=== PATIENT | female | born 2005 | race Caucasian/White ===

== ENCOUNTER 2023-05-02 17:10 | Emergency (ER) | payer OTHER ==
--- OUTSIDE RECORDS SUMMARY | 2023-05-02 17:12 | XMS REPORT | Continuity of Care Document ---
:2005 Author Organization [facility] t Address [address] [facility] [place] [address] Care Team Providers Name Role Phone EMMA SRINIVASAN Scooter Primary Care Physician Unavailable GC_SMFM_Preuss_C Attending Clinician Unavailable MARY SÁNCHEZ Attending Clinician Unavailable Mary Owen Attending Clinician GC_SMFM_Preuss_C Admitting Clinician Unavailable MARY SÁNCHEZ Admitting Clinician Unavailable Payers Payer Name Policy Type Policy Number Effective Date Expiration Date S ource [employer] - OPEN [id number] ACCESS - NATIONAL (POS) [place] CHILDREN [id number] 2014 HEALTH 00:00:00 Problems Condition Condition Condition Status Onset Resolution Last Treating Co mments Source Name Details Category Date Date Treatment Clinician Date No known No known Disease Unive rs active active ity of problems problems [facility] Allergies, Adverse Reactions, Alerts Allergy Allergy Status Severity Reaction(s) Onset Inactive Treating Comm ents Source Name Type Date Date Clinician Erythrom Propensi Active Nausea Univer s ycin ty to and/or -17 ity of adverse Vomiting 00:00: [place] reaction 00 Medical s Branch ERYTHROM DRUG Active N/V Univers YCIN 4-17 ity of 00:00: [address] Branch Azithrom Propensi Active Nausea 2014-09 Univer s ycin ty to and/or 0-02 ity of adverse Vomiting 00:00: [place] reaction 00 Medical s Branch AZITHROM DRUG Active High N/V 2014-09 Univers YCIN INGREDI 0-02 ity of 00:00: [place] 00 Medical Branch Azithrom Allergy Active [facility] ycin to Medical substanc e Social History Social Habit Start Date Stop Date Quantity Comments Source Exposure to Not sure [facility] SARS-CoV-2 [facility] (event) Branch Alcohol intake 2021-11-28 2021-11-28 Current [facility] 00:00:00 00:00:00 non-drinker of [facility] alcohol Truman (finding) Tobacco use and 2018-05-02 2018-05-02 Never used Universit y of exposure 00:00:00 00:00:00 [facility] Sex Assigned At [birth year] Universit y of 00:00:00 00:00:00 [facility] Smoking Status Start Date Stop Date Source Never Smoker [facility] Medications Ordered Filled Start Stop Current Ordering Indication Dosage Frequency Signature Comments Components Source Medication Medication Date Date Medication? Clinician (SIG) Name Name proMETHazin 2021- No 12.5mg 12.5 mg, Univers e 11-28 IV ity of (PHENERGAN) 08:45: 07:56 [place], [place] 12.5 mg in 00 :00 ONCE, 1 Medica l NaCl 0.9% dose, On Branch (NS) 50 mL Erica IV 11/28/21 at piggyback 0345, WANDA iopamidol 2021- No [id number] 100mL 100 mL, Univers (ISOVUE 11-28 Intravenou ity o f 370-500 mL) 08:15: 07:08 s, ONCE, 1 [place] injection 00 :00 dose, On Medica l 100 mL Erica Branch 11/28/21 at 0315, Routine ketorolac 2021- No 15mg 15 mg, Unive rs (TORADOL) 11-28 Slow IV ity of injection 07:15: 06:09 Push, [place] 15 mg 00 :00 ONCE, 1 Medical dose, On Branch Erica 11/28/21 at 0215, WANDA ondansetron 2021- No 8mg 8 mg, Slow Univers (ZOFRAN 11-28 IV Push, ity of (PF)) 07:15: 06:09 ONCE, 1 [place] injection 8 00 :00 dose, On Medi milena mg Erica Branch 11/28/21 at 0215, WANDA NaCl 0.9% 2021- No 1000mL at 999 Uni vers (NS) bolus 11-28 mL/hr, ity of infusion 07:00: 07:00 1,000 mL, Ryan as 1,000 mL 00 :00 IV Medical Infusion, Branch ONCE, 1 dose, On Erica 11/28/21 at 0200, WANDA dicyclomine 2021- No 20mg 20 mg, Uni vers (BENTYL) 11-28 Intramuscu ity of injection 06:54: 06:57 lar, ONCE, [place] 20 mg 00 :00 1 dose, On Medical Erica Branch 11/28/21 at 0200, Routine ondansetron Yes [id number] 4mg Take 1 Univers 4 mg 3-17 tablet by ity of disintegrat 00:00: mouth [place] ing tablet 00 every 8 Medica l (eight) Branch hours as needed for Nausea and Vomiting (N/V). proMETHazin Yes [id number] 25mg Take 1 Univers e 25 mg 3-17 tablet by ity of tablet 00:00: mouth [place] 00 every 6 Medical (six) Branch hours as needed for Nausea and Vomiting (N/V). dicyclomine Yes [id number] 20mg Take 1 Univers 20 mg 3-17 tablet by ity of tablet 00:00: mouth 4 [place] 00 (four) Medical times Branch daily as needed for Abdominal pain. ALBUTEROL 2018-09 Yes Inhale. Unive rs INHALE 0-29 ity of 21:24: [place] 50 Medical Branch AVIANE 2018-09 Yes Univers 0.1-20 0-23 ity of mg-mcg per 00:00: [place] tablet 00 Medical Branch albuterol albuterol No 2puff(s Q4H albuterol [facility] sulfate HFA sulfate HFA ) sulfate Medical 90 90 HFA 90 mcg/actuati mcg/actuati mcg/actuat on aerosol on aerosol ion inhaler inhaler aerosol Inhale 2 Inhale 2 inhaler puffs every puffs every Inhale 2 4 hours by 4 hours by puffs inhalation inhalation every 4 route as route as hours by needed. needed. inhalation route as needed. Tamiflu 75 Tamiflu 75 No 1capsul BID Tamiflu 75 [facility] mg capsule mg capsule e(s) mg capsule Medical Take 1 Take 1 Take 1 capsule capsule capsule twice a day twice a day twice a by oral by oral day by route for 5 route for 5 oral route days. days. for 5 days. Vital Signs Vital Name Observation Time Observation Value Comments Source BP Diastolic 2022-07-16 00:00:00 74 mm[Hg] Jarrod [facility] Height 2022-07-16 00:00:00 61 [in_i] [facility] BMI (Body Mass 2022-07-16 00:00:00 21.4 kg/m2 [facility] Index) BP Systolic 2022-07-16 00:00:00 122 mm[Hg] Jarrod [facility] Body Weight 2022-07-16 00:00:00 1811 [oz_av] [facility] Systolic blood 2021-11-28 08:00:00 103 mm[Hg] Univer sity of pressure [facility] Diastolic blood 2021-11-28 08:00:00 70 mm[Hg] Unive rsity of pressure [facility] Heart rate 2021-11-28 08:00:00 69 /min [facility] Respiratory rate 2021-11-28 08:00:00 17 /min [facility] Oxygen saturation in 2021-11-28 08:00:00 99 /min [facility] Arterial blood by [facility] Pulse oximetry Branch Body temperature 2021-11-28 05:40:[address] [facility] height 2021-11-28 05:40:00 152.4 cm [facility] Body weight 2021-11-28 05:40:00 49.896 kg [facility] BMI 2021-11-28 05:40:00 21.48 kg/m2 [facility] Body mass index 2021-11-28 05:40:00 49.59 % Unive rsity of (BMI) [Percentile] [place] [facility] ical Per age and sex Branch Procedures Procedure Date / Time Performed Performing Clinician Sourc e POTASSIUM SERUM 2021-11-28 07:27:00 Mary Sánchez [facility] CT ABDOMEN PELVIS W 2021-11-28 07:11:42 Mary Sánchez [facility] CONTRAST [facility] POCT TEST 2021-11-28 06:51:00 Mary Sánchez [facility] URINALYSIS 2021-11-28 06:46:00 [facility]UEN[facility] A/B 2021-11-28 06:08:00 Mary Sánchez [facility] COVID-19 (ID NOW RAPID 2021-11-28 06:08:00 [facility] Branch LIPASE 2021-11-28 05:59:00 [facility] COMP. METABOLIC PANEL 2021-11-28 05:59:00 Mary Sánchez [facility] ([id number]) [facility] CBC WITH DIFF 2021-11-28 05:59:00 [facility] NOTICE OF PRIVACY 2021-11-28 05:35:16 Doctor Unassigned, No [facility] PRACTICES Name [facility] CONSENT/REFUSAL FOR 2021-11-28 05:34:49 Doctor Unassigned, No [facility] DIAGNOSIS AND Name [facility] TREATMENT Plan of Care Planned Activity Planned Date Details Comments Source Diagnostic Test 2022-07-16 SARS CoV 2 RdRp gene, Claudia via Medical Pending 00:00:00 QL probe, respiratory specimen [code = SARS CoV 2 RdRp gene, QL probe, respiratory specimen] Encounters Start End Encounter Admission Attending Care Care Encounter Source Date/Time Date/Time Type Type Clinicians Facility Department ID 2022-07-21 2022-07-21 Outpatient GC_SMFM_Pre PRIV PRIV [id number] [facility] 00:00:00 00:00:00 uss_C [id number] Medica l 2022-07-17 2022-07-17 Outpatient GC_SMFM_Pre PRIV PRIV [id number] [facility] 00:00:00 00:00:00 uss_C [id number] Medica l 2022-07-16 2022-07-16 Outpatient GC_SMFM_Pre PRIV PRIV [id number] [facility] 00:00:00 00:00:00 uss_C [id number] Medica l 2022-07-16 2022-07-16 [facility] [id number] [facility] 00:00:00 00:00:00 [facility] - Medic al TEAM MEMBER: 110 GC_SMFM_Fas Melonie ford [facility], [address], [place] [address] , Ph. 2021-11-28 2021-11-28 Emergency X SÁNCHEZ, RUST ERT [id number] Univers 00:56:00 03:21:00 MARY wilkins [facility] 2021-11-28 2021-11-28 Emergency Sánchez, RUST [id number] Univers 00:56:00 03:21:00 Mary HEBERT [id number] i ty [facility] [id number] [facility] [id number] [address] Results Test Description Test Time Test Comments Results Result Comments Source POTASSIUM SERUM 2021-11-28 07:52:46 Test Item Value Reference Range Interpretation Comme nts K (test code = 7219991979) 4.6 mmol/L 3.5-5.0 Lab Interpretation (test code = 51931-9) Normal [place] [facility] [id number] 06:51:00 Test Item Value Reference Range Interpretation Comments POCT PREG (test code = 1605) negative On board controls acceptable with present C Line (test code = 3574) POCT PREG LOT # (test code = 3575) [id number] POCT PREG TEST DATE (test 2022-11-11 code = 3576) Lab Interpretation (test code = Normal 87015-1) [facility]. METABOLIC PANEL ([id number])2021-11-28 06:26:38 Test Item Value Reference Range Interpretation Comments NA (test code = 136 mmol/L 135-145 2091752011) K (test code = 5.7 mmol/L 3.5-5.0 H 5651409951) CL (test code = 102 mmol/L 98-108 3240090797) CO2 TOTAL (test code = 24 mmol/L 23-31 4961241173) AGAP (test code = 2-16 0629631326) BUN (test code = 17 mg/dL 7-23 1589915454) GLUCOSE (test code = 120 mg/dL 70-110 H 5768714624) CREATININE (test code = 0.73 mg/dL 0.50-1.04 3889701243) TOTAL BILI (test code = 1.9 mg/dL 0.1-1.1 H 5095851670) CALCIUM (test code = 9.2 mg/dL 8.6-10.6 7838864636) T PROTEIN (test code = 8.0 g/dL 6.3-8.2 4743096317) ALBUMIN (test code = 5.1 g/dL 3.5-5.0 H 4554564988) ALK PHOS (test code = 56 U/L 34-122 1639674374) ALTv (test code = 21 U/L 5-35 1742-6) AST(SGOT) (test code = 43 U/L 13-40 H 2997642559) eGFR (test code = mL/min/1.73m2 1293937344) SULLY (test code = SULLY) Association of Glomerular Filtration Rate (GFR) and Staging of Kidney Disease* + --+ --+ ------+| GFR (mL/min/1.73 m2) ?| With Kidney Damage ?| ?Without Kidney Damage+ --------+ --------+ +| ?>90 ?| ?Stage one ?| ? Normal ?+ ---+ ---+ -------+| ?60-89 ?| ?Stage two ?| ? Decreased GFR ? + --+ --+ ------+| ?30-59 ?| ?Stage three ?| ? Stage three ? + --+ --+ ------+| ?15-29 ?| ?Stage four ? | ? Stage four ?+ ---+ ---+ -------+| ?<15 (or dialysis) ? ?| ?Stage five ? | ? Stage five ?+ ---+ ---+ -------+ *Each stage assumes the associated GFR level has been in effect for at least three months. ?Stages 1 to 5, with or without kidney disease, indicate chronic kidney disease. Notes: Determination of stages one and two (with eGFR >59mL/min/1.73 m2) requires estimation of kidney damage for at least three months as defined by structural or functional abnormalities of the kidney, manifested by either:Pathological abnormalities or Markers of kidney damage (including abnormalities in the composition of the blood or urine or abnormalities in imaging tests). Lab Interpretation Abnormal (test code = 17078-3) [place] [facility] 06:26:18 Test Item Value Reference Range Interpretation Comments LIPASE (test code = 3044482703) 80 U/L 0-220 Lab Interpretation (test code = Normal 97275-2) [place] [facility] WITH [id number] 06:10:54 Test Item Value Reference Range Interpretation Comments WBC (test code = See_Comment H [Automated 4890-2) message] The system which generated this result transmit zachariah reference range : 4.50 - 13.50 10*3/?L. The reference range was not used to interpret this result as normal/abnormal . RBC (test code = See_Comment H [Automated 789-8) message] The system which generated this result transmit zachariah reference range : 4.10 - 5.10 10*6/?L. The reference range was not used to interpret this result as normal/abnormal . HGB (test code = 16.1 g/dL 12.0-16.0 H 718-7) HCT (test code = 47.4 % 36.0-45.0 H 4544-3) MCV (test code = 86.2 fL 78.0-95.0 787-2) MCH (test code = 29.3 pg 26.0-32.0 785-6) MCHC (test code = 34.0 g/dL 32.0-36.0 786-4) RDW-SD (test code = 37.4 fL 38.5-49.0 L 81011-0) RDW-CV (test code = 11.8 % 11.5-14.0 788-0) PLT (test code = See_Comment [Automated 777-3) message] The system which generated this result transmit zachariah reference range : 135 - 361 10*3/ ?L. The reference range was not u sed to interpret th is result as normal/abnormal . MPV (test code = 9.7 fL 9.4-13.3 06628-0) NRBC/100 WBC (test See_Comment [Automat ed code = 2093336374) message] The system which generated this result transmit zachariah reference range : 0.0 - 10.0 /100 WBCs. The reference range was not used to interpret this result as normal/abnormal . NRBC x10^3 (test code <0.01 See_Comment [Auto mated = 9010766326) message] The system which generated this result transmit zachariah reference range : 10*3/?L. The reference range was not used to interpret this result as normal/abnormal . GRAN MAT (NEUT) % 89.1 % (test code = 770-8) IMM GRAN % (test code 0.40 % = 7307418509) LYMPH % (test code = 5.2 % 736-9) MONO % (test code = 5.0 % 5905-5) EOS % (test code = 0.1 % 713-8) BASO % (test code = 0.2 % 706-2) GRAN MAT x10^3(ANC) 12.89 10*3/uL 1.50-10.30 H (test code = 8596978934) IMM GRAN x10^3 (test 0.06 10*3/uL 0.00-0.06 code = 4687375454) LYMPH x10^3 (test code 0.75 10*3/uL 0.70-7.40 = 731-0) MONO x10^3 (test code 0.72 10*3/uL 0.00-0.50 H = 742-7) EOS x10^3 (test code = <0.03 0.00-0.40 711-2) BASO x10^3 (test code 0.03 10*3/uL 0.00-0.10 = 704-7) Lab Interpretation Abnormal (test code = 61379-4) [facility]"
[2023-05-02] MEDS ORDERED: ACETAMINOPHEN 500 MG TAB ONE (18:13)
[2023-05-02] MEDS ORDERED: NA CHLORIDE 0.9% 1,000 ML ONE (18:13)
[2023-05-02] MEDS ORDERED: FAMOTIDINE 20 MG/2 ML VIAL IV ONE (18:13)
[2023-05-02] MEDS ORDERED: ONDANSETRON 4 MG/2 ML VIAL ONE (18:13)
[2023-05-02] MEDS ORDERED: KETOROLAC 30 MG/ML INJ ONE (18:13)
[2023-05-02 18:23] LABS: Specific Gravity 1.017 (1.005-1.030); Urine Bacteria <20 /HPF (<20); Urine Bilirubin NEGATIVE (Negative); Urine Blood Negative (Negative); Urine Clarity Turbid (Clear); Urine Color Light-Yellow (Yellow); Urine Glucose NEGATIVE (Negative); Urine Mucus Slight /HPF (None Seen); Urine Protein TRACE (Negative); Urine RBC <5 /HPF (None Seen); Urine Urobilinogen Normal (Normal); Urine pH 6.5 (5.0-7.0)
[2023-05-02 18:25] LABS: Absolute Lymphocytes (CBC) 1.1 K/uL (0.7-4.9); Hematocrit 41.1 % (36.0-45.0); Lymphocytes % 15.4 % (15.3-44.8); MCV 87.2 fL (80-100); MPV 7.9 fL (7.6-11.3); Platelets 150 thou/uL (152-406); RBC Red Blood Cell Count 4.71 M/uL (3.86-4.86); Specific Gravity 1.017 (1.005-1.030)
[2023-05-02 18:38] LABS: Albumin 3.3 g/dL (3.4-5.0); Bilirubin Total 1.4 mg/dL (0.2-1.0); Potassium 3.8 mEq/L (3.5-5.1); Protein, Total 6.8 g/dL (6.4-8.2)
--- NOTE | 2023-05-02 19:41 | RAD REPORT ---
EXAM DESCRIPTION: CT - Abdomen Pelvis W Contrast - 05/02/2023 6:47 pm CLINICAL HISTORY: lower abd pain, +fever, dont wait Cr COMPARISON: No comparisons TECHNIQUE: Thin cut axial CT imaging of the abdomen and pelvis was performed following intravenous a dministration of 90 mL Isovue 300. Multiplanar reformats were generated and reviewed. All CT scans are performed using dose optimization technique as appropriate and may include automated exposure control or mA/KV adjustment according to patient size. FINDINGS: No suspicious findings in the lung bases. The liver, spleen, and pancreas show no suspicious findings. Gallbladder and biliary tree are also wi thout suspicious finding. Symmetric renal function is seen with no hydronephrosis or suspicious renal mass. No dilated bowel loops. Segmental wall thickening, mucosal hyperenhancement, and adjacent fat strandi ng involving the ascending colon. Mild free fluid layering in the pelvis. No free air, or fluid colle ctions. No hernia, mass or bulky lymphadenopathy. The urinary bladder is without significant finding. No suspicious bony findings. IMPRESSION: Findings most suggestive of segmental acute colitis involving the descending colon as ab ove. Mild free ascites layering in the pelvis. The findings were communicated to Mal Page on 05/02/2023 at 19: 29 hours.
[2023-05-02] MEDS ORDERED: MORPHINE 2 MG/ML SYR ONE (19:51)
--- NOTE | 2023-05-02 20:03 | ER ---
Nurse's Notes [facility] Name: Rubia Hilliard Age: 18 yrs Sex: Female : 2005 Arrival Date: 05/02/2023 Time: 17:10 Bed 3 Private MD: Diagnosis: Colitis;Lower abdominal pain;Acute febrile illness Presentation: 05/02 17:28 Chief complaint: Patient states: Fever, nausea, vomiting and diarrhea since Thursday. nj1 Seen at [facility] yesterday, sent home with rx's for pain/nausea which are not helping. Called today to [facility] and advised to come to ED for admission. Coronavirus screen: Vaccine status: Patient reports being unvaccinated. Ebola Screen: Patient denies travel to an Ebola-affected area in the 21 days before illness onset. Initial Sepsis Screen: Does the patient meet any 2 criteria? Temp <36.0*C (96.8*F)) or > 38.3*C (100.9*F). HR > 90 bpm. No. Patient's initial sepsis screen is negative. Does the patient have a suspected source of infection? Yes: Other: To be determined. Risk Assessment: Do you want to hurt yourself or someone else? Patient reports no desire to harm self or others. Onset of symptoms was April 29, 2023. 17:28 Method Of Arrival: Wheelchair [facility] 17:28 Acuity: CARMINE 3 [facility] Triage Assessment: 17:44 General: Appears. 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 - Social history:: Smoking status: Patient denies any tobacco usage or history of. Screenin:[address] [facility] ED Fall Risk Assessment (Adult) History of falling in the last 3 months, ap3 including since admission No falls in past 3 months (0 pts). Abuse screen: Denies threats or abuse. Nutritional screening: No deficits noted. Tuberculosis screening: No symptoms or risk factors identified. Assessment: 17:44 General: Appears uncomfortable, ill, Behavior is cooperative, appropriate for age, ap3 crying. Pain: Complains of pain in suprapubic area, right lower quadrant and left lower quadrant Pain currently is 7 out of 10 on a pain scale. Neuro: Level of Consciousness is awake, alert, obeys commands, Oriented to person, place, time, situation. Cardiovascular: Patient's skin is warm and dry. Respiratory: Airway is patent Respiratory effort is even, unlabored, Respiratory pattern is regular, symmetrical. GI: Abdomen is flat, Abd is soft X 4 quads Abdomen is tender to palpation in suprapubic area, right lower quadrant and left lower quadrant Reports lower abdominal pain, diarrhea, nausea. 19:29 General: pt complains of pain to lower abdomen that has started to radiate to upper jw7 abdomen. Provider notified. 20:43 GI:. jw7 Vital Signs: 17:28 BP 118 / 70; Pulse 94; Resp 18; Temp 101; Pulse Ox 99% on R/A; Weight 52.16 kg; Height nj1 5 ft. 0 in. ; Pain 4/10; 19:30 BP 108 / 70; Pulse 80; Resp 18 S; Temp 100.2(O); Pulse Ox 99% on R/A; jw7 17:28 Body Mass Index 22.46 (52.16 kg, 152.4 cm) nj1 17:28 Pain Scale: Adult nj1 ED Course: 17:13 Patient arrived in ED. im 17:31 Kan Tavarez MD is Attending Physician. jr11 17:33 Triage completed. nj1 17:33 Arm band placed on left wrist. nj1 17:38 Patient has correct armband on for positive identification. Bed in low position. Call ap3 light in reach. Side rails up X 1. Pulse ox on. NIBP on. 17:45 ED physician to see patient. ap3 17:58 Inserted saline lock: 20 gauge in right antecubital area, using aseptic technique. ap3 Blood collected. 18:12 Mignon Peralta, GEE is Primary Nurse. ap3 18:12 Initial lab(s) drawn, by pa, sent to lab. ap3 18:12 Urinalysis w/ reflexes Sent. ap3 18:12 Test, Urine Sent. ap3 18:12 Lipase Sent. ap3 18:12 CMP Sent. ap3 18:12 CBC with Diff Sent. ap3 18:12 Lactate w/ 2H reflex if indic. Sent. ap3 18:48 CT Abd/Pelvis - IV Contrast Only In Process Unspecified. EDMS 19:13 Attending Physician role handed off by Kan Tavarez MD sd2 19:13 Dipika Pozo MD is Attending Physician. sd2 20:42 No provider procedures requiring assistance completed. IV discontinued, intact, jw7 bleeding controlled, No redness/swelling at site. Pressure dressing applied. 20:43 Provided Education on: discharge instructions and medications . jw7 Administered Medications: 18:12 Drug: NS 0.9% IV 1000 ml Route: IV; Rate: 1 bolus; Site: right antecubital; ap3 20:42 Follow up: Response: No adverse reaction; IV Status: Completed infusion; IV Intake: jw7 1000ml 18:12 Drug: Famotidine IVP 20 mg Route: IVP; Site: right antecubital; ap3 20:41 Follow up: Response: No adverse reaction jw7 18:12 Drug: TORadol - Ketorolac IVP 15 mg Route: IVP; Site: right antecubital; ap3 20:42 Follow up: Response: No adverse reaction jw7 18:12 Drug: Ondansetron IVP 4 mg Route: IVP; Site: right antecubital; ap3 20:41 Follow up: Response: No adverse reaction jw7 18:12 Drug: Acetaminophen PO 1000 mg Route: PO; ap3 20:41 Follow up: Response: No adverse reaction jw7 19:46 Drug: morphine IVP or IV 2 mg Route: IVP; Infused Over: 4 mins; Site: right antecubital;jw7 20:41 Follow up: Response: No adverse reaction jw7 20:35 Drug: Ciprofloxacin PO 500 mg Route: PO; jw7 20:41 Follow up: Response: No adverse reaction jw7 20:35 Drug: metroNIDAZOLE PO 500 mg Route: PO; jw7 20:41 Follow up: Response: No adverse reaction jw7 Medication: 17:45 VIS not applicable for this client. ap3 Intake: 20:42 IV: 1000ml; Total: 1000ml. jw7 Outcome: 20:02 Discharge ordered by . sd2 20:42 Discharged to home via wheelchair, with family. jw7 20:42 Condition: stable 20:42 Discharge instructions given to patient, family, Instructed on discharge instructions, follow up and referral plans. medication usage, Demonstrated understanding of instructions, follow-up care, medications, Prescriptions given X 4. 20:44 Patient left the ED. jw7 Signatures: Dispatcher [employer] EDMS Mignon Peralta RN RN ap3 Cherri Peñaloza RN RN jw7 Kan Tavarez MD MD jr11 Dipika Pozo MD MD sd2 Disha Krishnan RN RN nj1 Irina Muir
--- NOTE | 2023-05-02 20:03 | EDPHYS ---
Physician Documentation [facility] Name: Rubai Hilliard Age: 18 yrs Sex: Female : 2005 Arrival Date: 05/02/2023 Time: 17:10 Bed 3 Private MD: ED Physician Dipika Pozo HPI: 05/02 17:54 Patient is a 18-year-old that has had diarrhea abdominal cramping for the last 4 days. jrCrystal Went to a freestanding ER yesterday, was given nausea medicine and sent home. Patient continued with severe pain so she decided to come in for evaluation. Patient recently finished her menses. Denies any vaginal bleeding vaginal discharge concern for STD.. 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 - Social history:: Smoking status: Patient denies any tobacco usage or history of. ROS: 17:54 All other systems are negative. jr11 Exam: 17:54 Constitutional: This is a well developed, well nourished patient who is awake, alert, jr11 and in no acute distress. Head/Face: Normocephalic, atraumatic. Eyes: Extra-ocular motions intact. Lids and lashes normal. Conjunctiva and sclera are non-icteric and not injected. Cornea within normal limits. Periorbital areas with no swelling, redness, or edema. ENT: Nares patent. No nasal discharge, no septal abnormalities noted. Oropharynx with no redness, swelling, or masses, exudates, or evidence of obstruction, uvula midline. Mucous membranes moist. Neck: Trachea midline, no thyromegaly or masses palpated, and no cervical lymphadenopathy. Supple, full range of motion without nuchal rigidity, or vertebral point tenderness. No Meningismus. Chest/axilla: Normal chest wall appearance and motion. Nontender with no deformity. No lesions are appreciated. Cardiovascular: Regular rate and rhythm with a normal S1 and S2. No gallops, murmurs, or rubs. Normal PMI, no JVD. No pulse deficits. Abdomen/GI: TTP bilateral LQs +vol guarding Skin: Warm, dry with normal turgor. Normal color with no rashes, no lesions, and no evidence of cellulitis. MS/ Extremity: Pulses equal, no cyanosis. Neurovascular intact. Full, normal range of motion. Neuro: Awake and alert, GCS 15, oriented to person, place, time, and situation. No gross motor or sensory deficits. Vital Signs: 17:28 BP 118 / 70; Pulse 94; Resp 18; Temp 101; Pulse Ox 99% on R/A; Weight 52.16 kg; Height nj1 5 ft. 0 in. ; Pain 4/10; 19:30 BP 108 / 70; Pulse 80; Resp 18 S; Temp 100.2(O); Pulse Ox 99% on R/A; jw7 17:28 Body Mass Index 22.46 (52.16 kg, 152.4 cm) nj1 17:28 Pain Scale: Adult nj1 MDM: 17:44 Patient medically screened. [facility] 17:54 Differential diagnosis: appendicitis, non-specific abd pain, Pyelonephritis, urinary jr11 tract infection, appy, diverticulitis. Data reviewed: vital signs, nurses notes. 20:00 Data reviewed: lab test result(s), radiologic studies, CT scan. I considered the sd2 following discharge prescriptions or medication management in the emergency department Medications were administered in the Emergency Department. See MAR. Care significantly affected by the following Social Determinants of Health: Poor access to healthcare and/or lack of insurance. Counseling: I had a detailed discussion with the patient and/or guardian regarding the historical points, exam findings, and any diagnostic results supporting the discharge/admit diagnosis, lab results, radiology results, the need for outpatient follow up, to return to the emergency department if symptoms worsen or persist or if there are any questions or concerns that arise at home. ED course: Pt feeling improved after treatment. Discussed findings of CT reviewed by myself which is consistent with colitis. Advised continued supportive care along with outpatient antibiotics and follow up with a PCP. Pt is returning to college on Thursday and will follow up on her return. She is comfortable with plan for discharge and outpatient follow up and verbalizes understanding of strict return precautions.. 05/02 17:45 Order name: CBC with Diff; Complete Time: 18:46 jr11 05/02 17:45 Order name: CMP; Complete Time: 18:46 [facility] 05/02 17:45 Order name: Lipase; Complete Time: 18:46 [facility] 05/02 17:45 Order name: Test, Urine; Complete Time: 18:46 [facility] 05/02 17:45 Order name: Urinalysis w/ reflexes; Complete Time: 18:24 [facility] 05/02 17:45 Order name: Lactate w/ 2H reflex if indic.; Complete Time: 18:46 [facility] 05/02 17:45 Order name: CT Abd/Pelvis - IV Contrast Only; Complete Time: 19:52 [facility] 05/02 17:45 Order name: IV Saline Lock; Complete Time: 17:58 [facility] 05/02 17:45 Order name: Labs collected and sent; Complete Time: 18:12 [facility] Administered Medications: 18:12 Drug: NS 0.9% IV 1000 ml Route: IV; Rate: 1 bolus; Site: right antecubital; ap3 20:42 Follow up: Response: No adverse reaction; IV Status: Completed infusion; IV Intake: jw7 1000ml 18:12 Drug: Famotidine IVP 20 mg Route: IVP; Site: right antecubital; ap3 20:41 Follow up: Response: No adverse reaction jw7 18:12 Drug: TORadol - Ketorolac IVP 15 mg Route: IVP; Site: right antecubital; ap3 20:42 Follow up: Response: No adverse reaction jw7 18:12 Drug: Ondansetron IVP 4 mg Route: IVP; Site: right antecubital; ap3 20:41 Follow up: Response: No adverse reaction jw7 18:12 Drug: Acetaminophen PO 1000 mg Route: PO; ap3 20:41 Follow up: Response: No adverse reaction jw7 19:46 Drug: morphine IVP or IV 2 mg Route: IVP; Infused Over: 4 mins; Site: right antecubital;jw7 20:41 Follow up: Response: No adverse reaction jw7 20:35 Drug: Ciprofloxacin PO 500 mg Route: PO; jw7 20:41 Follow up: Response: No adverse reaction jw7 20:35 Drug: metroNIDAZOLE PO 500 mg Route: PO; jw7 20:41 Follow up: Response: No adverse reaction jw7 Disposition Summary: 05/02/23 20:02 Discharge Ordered Location: Home sd2 Problem: new sd2 Symptoms: have improved sd2 Condition: Stable sd2 Diagnosis - Colitis sd2 - Lower abdominal pain sd2 - Acute febrile illness sd2 Followup: sd2 - With: Private Physician - When: 2 - 3 days - Reason: Recheck today's complaints, Continuance of care, Re-evaluation by your physician Discharge Instructions: - Discharge Summary Sheet sd2 - Abdominal Pain, Adult sd2 - Fever, Adult sd2 - Colitis sd2 Forms: - School release form jw7 - Medication Reconciliation Form sd2 - Thank You Letter sd2 - Antibiotic Education sd2 - Prescription Opioid Use sd2 - Patient Portal Instructions sd2 - Leadership Thank You Letter sd2 Prescriptions: - acetaminophen-codeine 300-15 mg Oral tablet - take 1 tablet by ORAL route every 6 hours As needed; 12 tablet; Refills: 0, sd2 Product Selection Permitted - dicyclomine 10 mg Oral capsule - take 1 capsule by ORAL route every 6 hours As needed Take 1-2 capsules as sd2 needed for abdominal cramping; 15 capsule; Refills: 0, Product Selection Permitted - Cipro 500 mg Oral Tablet - take 1 tablet by ORAL route every 12 hours for 10 days; 20 tablet; Refills: 0, sd2 Product Selection Permitted - Flagyl 500 mg Oral Tablet - take 1 tablet by ORAL route every 12 hours for 10 days; 20 tablet; Refills: 0, sd2 Product Selection Permitted Signatures: Dispatcher [employer] Mignon Andrade, RN RN ap3 Cherri Peñaloza RN RN jw7 Kan Tavarez MD MD jr11 Dipika Pozo MD MD sd2 Disha Krishnan RN RN nj1
[2023-05-02] MEDS ORDERED: CIPROFLOXACIN HCL 500 MG TAB ONE (20:36)
[2023-05-02] MEDS ORDERED: metroNIDAZOLE 500 MG TABLET ONE (20:38)
[2023-05-02 21:14] VITALS: O2SAT 99
[2023-05-02 21:20] VITALS: BP 108/70; TEMP 100.2
== END 2023-05-02 20:44 | disposition home or self-care (01) ==
LOC: ER 17:10
DX: R10.30 Lower abdominal pain, unspecified (principal); R19.7 Diarrhea, unspecified; R50.9 Fever, unspecified
CPT/HCPCS: 96361; 85025; 81001; 36415; 81025; 83605; 83690; 80053; 74177; 96375; 96374; 99284; Q9967; J2270; J2405; J7030